=== PATIENT | female | born 1940 | race Caucasian/White ===

== ENCOUNTER 2020-08-09 10:11 | Inpatient (IN) ==
[2020-08-09] MEDS ORDERED: 0.9 % Sodium Chloride 1,000 ML IVC ONE (10:24)
[2020-08-09 11:11] LABS: Basophils % 0.1 %; Hematocrit 41.2 % (35.3-44.9); Hemoglobin 13.5 g/dL (11.5-15.4); Immature Granulocytes % 0.4 % (0-4); Lymphocytes # 0.6 K/mcL (0.6-4.6); Lymphocytes % 7.9 %; Mean Corpuscular HGB Conc 32.8 g/dL (31.6-35.5); Mean Corpuscular Hemoglobin 30.3 pg (28.0-33.3); Mean Corpuscular Volume 92.6 fL (83.0-100.0); Mean Platelet Volume 9.4 fL (9.4-12.4); Monocytes # 0.2 K/mcL (0.0-1.3); Monocytes % 2.9 %; Platelet Count 379 K/mcL (140-400); Red Blood Count 4.45 M/mcL (3.82-4.97); Red Cell Distribution Width 13.4 % (11.5-14.5); Segmented Neutrophils % 88.7 %; White Blood Count 7.9 K/mcL (4.3-11.1)
[2020-08-09 11:38] LABS: BUN/Creatinine Ratio 15 (6-26); Blood Urea Nitrogen 12 mg/dL (8-23); Calcium 9.3 mg/dL (8.6-10.3); Carbon Dioxide 26 mEq/L (23-29); Chloride 99 mEq/L (98-107); Glucose 105 mg/dL (70-105); Osmolality,Calculated 280 (280-300); Potassium 3.7 mEq/L (3.5-5.1); Sodium 135 mEq/L (136-145); eGFR For African Americans > 60 (> 60); eGFR For Non-African Americans > 60 (> 60)
[2020-08-09 11:40] LABS: Troponin I < 0.03 ng/mL (< 0.04)
[2020-08-09] MEDS ORDERED: cefTRIAXone 2,000 MG in Water for inj. (sterile) 20 ML IVP ONE (11:53)
[2020-08-09] MEDS ORDERED: Azithromycin 500 MG in 0.9 % Sodium Chloride 250 ML IVPB ONE (11:53)
[2020-08-09] MEDS ORDERED: *HR* HYDROcodone/Acet 5/325 mg TABLET PO PRN (13:17)
[2020-08-09] MEDS ORDERED: Naloxone 0.4 MG/ML INJ IVP PRN (13:17)
[2020-08-09] MEDS ORDERED: Isovue-370 500 ML BOTTLE IVP ONE (13:23)
[2020-08-09] MEDS ORDERED: Dexamethasone 4 MG/ML VIAL IVP SCH ×2 (13:30→23:45)
[2020-08-09] MEDS ORDERED: Ringers Solution, Lactated 1,000 ML IVC SCH (14:00)
[2020-08-09 14:59] LABS: ABG Base Excess 4 mEq/L (-2 to 3); ABG HCO3 28 mEq/L (21-27); ABG Oxygen Saturation 98 % (95-98); ABG PCO2 37 mmHg (35-45); ABG PH 7.48 pH Units (7.32-7.45); ABG PO2 104 mmHg (85-104); ABG TCO2 29 mEq/L (20-26)
[2020-08-09 15:09] LABS: INR 1.2; Prothrombin Time 13.7 Seconds (9.4-12.1)
[2020-08-09] MEDS: Albuterol 2.5 MG/3 ML NEBULIZER IH SCH ×3 (15:09→23:34)
[2020-08-09 15:12] LABS: Activated Partial Thrombo Time 27.4 Seconds (26.0-36.0)
[2020-08-09 15:45] LABS: Lactate Dehydrogenase 287 Units/L (140-271)
[2020-08-09 15:48] LABS: Ferritin 403 ng/mL (10-120)
[2020-08-09 23:19] LABS: Adenovirus Not Detected (Not Detect); Coronavirus 229E Not Detected (Not Detect); Coronavirus HKU1 Not Detected (Not Detect); Coronavirus NL63 Not Detected (Not Detect); Coronavirus OC43 Not Detected (Not Detect)
[2020-08-09 23:20] LABS: Bordetella Pertussis Not Detected (Not Detect); Chlamydophila pneumoniae Not Detected (Not Detect); Human Metapneumovirus Not Detected (Not Detect); Human Rhinovirus/Enterovirus Not Detected (Not Detect); Influenza A Subtype 2009 H1 Not Detected (Not Detect); Influenza B Not Detected (Not Detect); Mycoplasma pneumoniae Not Detected (Not Detect); Parainfluenza Virus 1 Not Detected (Not Detect); Parainfluenza Virus 2 Not Detected (Not Detect); Parainfluenza Virus 3 Not Detected (Not Detect); Parainfluenza Virus 4 Not Detected (Not Detect); Respiratory Syncytial Virus Not Detected (Not Detect); SARS-CoV-2 DETECTED (Not Detect)
[2020-08-10] MEDS: Albuterol 2.5 MG/3 ML NEBULIZER IH SCH (04:01)
[2020-08-10] MEDS: *HR* Enoxaparin 40 MG/0.4 ML SYRINGE SQ SCH (05:22)
[2020-08-10] MEDS ORDERED: Azithromycin 500 MG in 0.9 % Sodium Chloride 250 ML IVPB SCH (08:00)
[2020-08-10] MEDS: Dexamethasone 4 MG/ML VIAL IVP SCH ×2 (10:25→21:00)
[2020-08-10] MEDS: cefTRIAXone 1,000 MG in Water for inj. (sterile) 10 ML IVP SCH (10:28)
[2020-08-10] MEDS: Azithromycin 250 MG TABLET PO SCH (10:31)
[2020-08-10 10:38] LABS: Basophils % 0.2 %; Hematocrit 38.9 % (35.3-44.9); Immature Granulocytes % 0.5 % (0-4); Lymphocytes # 0.3 K/mcL (0.6-4.6); Mean Corpuscular HGB Conc 33.4 g/dL (31.6-35.5); Mean Corpuscular Hemoglobin 31.4 pg (28.0-33.3); Mean Platelet Volume 9.2 fL (9.4-12.4); Monocytes # 0.1 K/mcL (0.0-1.3); Monocytes % 1.4 %; Neutrophils # 5.2 K/mcL (1.6-8.9); Platelet Count 430 K/mcL (140-400); Red Blood Count 4.14 M/mcL (3.82-4.97); Red Cell Distribution Width 13.7 % (11.5-14.5); Segmented Neutrophils % 92.9 %; White Blood Count 5.6 K/mcL (4.3-11.1)
[2020-08-10 10:40] LABS: INR 1.2; Prothrombin Time 13.7 Seconds (9.4-12.1)
[2020-08-10 10:56] LABS: Alanine Aminotransferase 13 Units/L (7-52); Alkaline Phosphatase 56 Units/L (34-104); Aspartate Amino Transferase 34 Units/L (13-39); BUN/Creatinine Ratio 20 (6-26); Bilirubin,Direct 0.1 mg/dL (0.0-0.2); Bilirubin,Indirect 0.2 mg/dL (0.0-1.0); Bilirubin,Total 0.3 mg/dL (0.3-1.0); Blood Urea Nitrogen 11 mg/dL (8-23); Calcium 8.7 mg/dL (8.6-10.3); Carbon Dioxide 26 mEq/L (23-29); Chloride 105 mEq/L (98-107); Glucose 104 mg/dL (70-105); Osmolality,Calculated 292 (280-300); Potassium 3.7 mEq/L (3.5-5.1); Sodium 141 mEq/L (136-145); Total Protein 6.1 g/dL (6.4-8.9); eGFR For African Americans > 60 (> 60); eGFR For Non-African Americans > 60 (> 60)
[2020-08-10 10:57] LABS: Globulin 3.1 g/dL (2.4-3.5)
[2020-08-11] MEDS: *HR* Enoxaparin 40 MG/0.4 ML SYRINGE SQ SCH (05:17)
[2020-08-11] MEDS: cefTRIAXone 1,000 MG in Water for inj. (sterile) 10 ML IVP SCH (09:36)
[2020-08-11] MEDS: Dexamethasone 4 MG/ML VIAL IVP SCH ×2 (09:37→20:07)
[2020-08-11] MEDS: BuPROPion SR (12 HR) 150 MG TABLET PO SCH ×2 (09:38→20:07)
[2020-08-11] MEDS: Azithromycin 250 MG TABLET PO SCH (09:38)
[2020-08-11] MEDS ORDERED: 0.9 % Sodium Chloride 250 ML ONE (16:56)
[2020-08-12] MEDS: *HR* Enoxaparin 40 MG/0.4 ML SYRINGE SQ SCH (04:59)
[2020-08-12 06:59] LABS: Alanine Aminotransferase 20 Units/L (7-52); Albumin 2.9 g/dL (3.5-5.7); Albumin/Globulin Ratio 0.9 (1.1-2.2); Alkaline Phosphatase 51 Units/L (34-104); Aspartate Amino Transferase 30 Units/L (13-39); BUN/Creatinine Ratio 33 (6-26); Bilirubin,Direct 0.1 mg/dL (0.0-0.2); Bilirubin,Indirect 0.2 mg/dL (0.0-1.0); Bilirubin,Total 0.3 mg/dL (0.3-1.0); Blood Urea Nitrogen 22 mg/dL (8-23); Calcium 8.9 mg/dL (8.6-10.3); Carbon Dioxide 28 mEq/L (23-29); Chloride 106 mEq/L (98-107); Globulin 3.1 g/dL (2.4-3.5); Glucose 148 mg/dL (70-105); INR 1.1; Lactate Dehydrogenase 252 Units/L (140-271); Magnesium 2.1 mg/dL (1.6-2.6); Osmolality,Calculated 300 (280-300); Potassium 3.5 mEq/L (3.5-5.1); Prothrombin Time 13.1 Seconds (9.4-12.1); Sodium 142 mEq/L (136-145); eGFR For African Americans > 60 (> 60); eGFR For Non-African Americans > 60 (> 60)
[2020-08-12 07:16] LABS: Ferritin 329 ng/mL (10-120)
[2020-08-12 07:35] LABS: Hematocrit 35.8 % (35.3-44.9); Hemoglobin 12.1 g/dL (11.5-15.4); Mean Corpuscular HGB Conc 33.8 g/dL (31.6-35.5); Mean Corpuscular Hemoglobin 31.3 pg (28.0-33.3); Mean Corpuscular Volume 92.5 fL (83.0-100.0); Mean Platelet Volume 9.2 fL (9.4-12.4); Platelet Count 537 K/mcL (140-400); Red Blood Count 3.87 M/mcL (3.82-4.97); Red Cell Distribution Width 13.7 % (11.5-14.5)
[2020-08-12 07:43] LABS: White Blood Count 11.3 K/mcL (4.3-11.1)
[2020-08-12] MEDS: Azithromycin 250 MG TABLET PO SCH (08:37)
[2020-08-12] MEDS: cefTRIAXone 1,000 MG in Water for inj. (sterile) 10 ML IVP SCH (08:37)
[2020-08-12] MEDS: Dexamethasone 4 MG/ML VIAL IVP SCH ×2 (08:37→19:38)
[2020-08-12] MEDS: BuPROPion SR (12 HR) 150 MG TABLET PO SCH ×2 (08:37→19:38)
[2020-08-12 09:35] LABS: C-Reactive Protein 97 mg/L (Less than 10)
[2020-08-12] MEDS ORDERED: 0.9 % Sodium Chloride 250 ML ONE (16:23)
[2020-08-12] MEDS: *HR* Enoxaparin 60 MG/0.6 ML SYRINGE SQ SCH (17:25)
[2020-08-13] MEDS: *HR* Enoxaparin 60 MG/0.6 ML SYRINGE SQ SCH ×2 (05:23→18:00)
[2020-08-13] MEDS: BuPROPion SR (12 HR) 150 MG TABLET PO SCH ×2 (10:50→20:01)
[2020-08-13] MEDS: Azithromycin 250 MG TABLET PO SCH (10:51)
[2020-08-13] MEDS: cefTRIAXone 1,000 MG in Water for inj. (sterile) 10 ML IVP SCH (10:51)
[2020-08-13] MEDS: Dexamethasone 4 MG/ML VIAL IVP SCH ×2 (10:51→20:00)
[2020-08-14] MEDS: *HR* Enoxaparin 60 MG/0.6 ML SYRINGE SQ SCH ×2 (05:19→17:42)
[2020-08-14 05:50] LABS: INR 1.1; Prothrombin Time 12.7 Seconds (9.4-12.1)
[2020-08-14 05:51] LABS: Hematocrit 39.8 % (35.3-44.9); Hemoglobin 12.8 g/dL (11.5-15.4); Mean Corpuscular HGB Conc 32.2 g/dL (31.6-35.5); Mean Corpuscular Hemoglobin 29.9 pg (28.0-33.3); Platelet Count 604 K/mcL (140-400); Red Blood Count 4.28 M/mcL (3.82-4.97); Red Cell Distribution Width 13.2 % (11.5-14.5); White Blood Count 8.1 K/mcL (4.3-11.1)
[2020-08-14 06:12] LABS: BUN/Creatinine Ratio 31 (6-26); Blood Urea Nitrogen 19 mg/dL (8-23); Calcium 8.7 mg/dL (8.6-10.3); Carbon Dioxide 30 mEq/L (23-29); Chloride 103 mEq/L (98-107); Glucose 149 mg/dL (70-105); Lactate Dehydrogenase 342 Units/L (140-271); Magnesium 2.2 mg/dL (1.6-2.6); Osmolality,Calculated 291 (280-300); Potassium 4.1 mEq/L (3.5-5.1); Sodium 138 mEq/L (136-145); eGFR For African Americans > 60 (> 60); eGFR For Non-African Americans > 60 (> 60)
[2020-08-14 06:24] LABS: Ferritin 468 ng/mL (10-120)
[2020-08-14 07:46] LABS: C-Reactive Protein 35 mg/L (Less than 10)
[2020-08-14] MEDS: cefTRIAXone 1,000 MG in Water for inj. (sterile) 10 ML IVP SCH (08:20)
[2020-08-14] MEDS: Dexamethasone 4 MG/ML VIAL IVP SCH ×2 (08:20→20:30)
[2020-08-14] MEDS: Azithromycin 250 MG TABLET PO SCH (08:21)
[2020-08-14] MEDS: BuPROPion SR (12 HR) 150 MG TABLET PO SCH ×2 (08:21→20:30)
[2020-08-15] MEDS: *HR* Enoxaparin 60 MG/0.6 ML SYRINGE SQ SCH ×2 (06:00→17:25)
[2020-08-15] MEDS: BuPROPion SR (12 HR) 150 MG TABLET PO SCH ×2 (09:17→20:31)
[2020-08-15] MEDS: cefTRIAXone 1,000 MG in Water for inj. (sterile) 10 ML IVP SCH (09:17)
[2020-08-15] MEDS: Azithromycin 250 MG TABLET PO SCH (09:17)
[2020-08-15] MEDS: Dexamethasone 4 MG/ML VIAL IVP SCH (09:18)
[2020-08-16 05:52] LABS: Hematocrit 43.1 % (35.3-44.9); Hemoglobin 14.2 g/dL (11.5-15.4); Mean Corpuscular HGB Conc 32.9 g/dL (31.6-35.5); Mean Corpuscular Hemoglobin 30.3 pg (28.0-33.3); Mean Corpuscular Volume 92.1 fL (83.0-100.0); Mean Platelet Volume 8.6 fL (9.4-12.4); Platelet Count 625 K/mcL (140-400); Red Blood Count 4.68 M/mcL (3.82-4.97); Red Cell Distribution Width 13.8 % (11.5-14.5); White Blood Count 8.4 K/mcL (4.3-11.1)
[2020-08-16 06:06] LABS: Prothrombin Time 11.7 Seconds (9.4-12.1)
[2020-08-16 06:11] LABS: BUN/Creatinine Ratio 37 (6-26); Blood Urea Nitrogen 32 mg/dL (8-23); Carbon Dioxide 30 mEq/L (23-29); Chloride 102 mEq/L (98-107); Glucose 77 mg/dL (70-105); Lactate Dehydrogenase 320 Units/L (140-271); Magnesium 2.2 mg/dL (1.6-2.6); Osmolality,Calculated 294 (280-300); Potassium 4.4 mEq/L (3.5-5.1); Sodium 139 mEq/L (136-145); eGFR For African Americans > 60 (> 60); eGFR For Non-African Americans > 60 (> 60)
[2020-08-16] MEDS: *HR* Enoxaparin 60 MG/0.6 ML SYRINGE SQ SCH (06:13)
[2020-08-16 06:28] LABS: Ferritin 481 ng/mL (10-120)
[2020-08-16] MEDS: Dexamethasone 4 MG/ML VIAL IVP SCH (08:55)
[2020-08-16] MEDS: BuPROPion SR (12 HR) 150 MG TABLET PO SCH ×2 (08:55→21:09)
[2020-08-16 10:11] LABS: C-Reactive Protein 18 mg/L (Less than 10)
[2020-08-16] MEDS: Furosemide 20 MG/2 ML VIAL IVP SCH ×2 (12:17→21:09)
[2020-08-17] MEDS: *HR* Enoxaparin 40 MG/0.4 ML SYRINGE SQ SCH (05:27)
[2020-08-17] MEDS: Furosemide 20 MG/2 ML VIAL IVP SCH (08:43)
[2020-08-17] MEDS: BuPROPion SR (12 HR) 150 MG TABLET PO SCH ×2 (08:43→19:45)
[2020-08-17] MEDS: Dexamethasone 4 MG/ML VIAL IVP SCH (08:44)
[2020-08-17 10:05] LABS: BUN/Creatinine Ratio 36 (6-26); Blood Urea Nitrogen 35 mg/dL (8-23); Calcium 8.8 mg/dL (8.6-10.3); Carbon Dioxide 29 mEq/L (23-29); Chloride 99 mEq/L (98-107); Glucose 136 mg/dL (70-105); Osmolality,Calculated 296 (280-300); Potassium 3.8 mEq/L (3.5-5.1); Sodium 138 mEq/L (136-145); eGFR For African Americans > 60 (> 60); eGFR For Non-African Americans 56 (> 60)
[2020-08-17] MEDS: polyethylene glycoL 3350 17 GM POWD.PACK PO SCH (17:05)
[2020-08-18] MEDS ORDERED: *HR* Enoxaparin 40 MG/0.4 ML SYRINGE SQ SCH (06:00)
[2020-08-18] MEDS: *HR* Enoxaparin 40 MG/0.4 ML SYRINGE SQ SCH (06:01)
[2020-08-18] MEDS: BuPROPion SR (12 HR) 150 MG TABLET PO SCH ×2 (10:11→19:44)
[2020-08-18] MEDS: Dexamethasone 4 MG/ML VIAL IVP SCH (10:11)
[2020-08-18] MEDS: polyethylene glycoL 3350 17 GM POWD.PACK PO SCH (10:11)
[2020-08-18 12:55] LABS: BUN/Creatinine Ratio 37 (6-26); Blood Urea Nitrogen 34 mg/dL (8-23); Calcium 9.2 mg/dL (8.6-10.3); Carbon Dioxide 29 mEq/L (23-29); Chloride 104 mEq/L (98-107); Glucose 120 mg/dL (70-105); Magnesium 2.1 mg/dL (1.6-2.6); Osmolality,Calculated 301 (280-300); Potassium 4.1 mEq/L (3.5-5.1); Sodium 141 mEq/L (136-145); eGFR For African Americans > 60 (> 60); eGFR For Non-African Americans 58 (> 60)
[2020-08-19] MEDS: *HR* Enoxaparin 40 MG/0.4 ML SYRINGE SQ SCH (05:40)
[2020-08-19] MEDS: BuPROPion SR (12 HR) 150 MG TABLET PO SCH (08:03)
[2020-08-19] MEDS: Dexamethasone 4 MG/ML VIAL IVP SCH (08:03)
[2020-08-19] MEDS: polyethylene glycoL 3350 17 GM POWD.PACK PO SCH (09:23)
[2020-08-19 12:45] VITALS: BP 116/69
== END 2020-08-19 15:57 | disposition home or self-care (01) | DRG 177 ==
LOC: 2ANU 10:11 → EMEROOARM 10:11 → SUATTDRO 16:36 → 2ANU 18:21 → 2NENU 08-10 00:17
PROVIDERS: ADMIT Internal Medicine; ATTEND Internal Medicine